=== PATIENT | male | born 1960 | race Caucasian/White ===

== ENCOUNTER 2016-08-29 07:58 | Emergency (ER) | payer MEDICAID ==
[~2016-08-29] VITALS: Ht 172.7 cm; Wt 82.0 kg
[~2016-08-29 07:58] MED LIST: BL ADULT ASA81 MG PO; CEPHALEXIN500 M1 PO; FENOFIBRATE145 MG PO; KEFLEX500 MG OR; LIPITOR80 M1 PO; LISINOPRIL/HYDR1 TA1 PO; LORTAB 5 OR; LORTAB 7.5 OR; NAPROSYN500 MG PO; NAPROXEN250 MG PO; NITROGLYCER0.4 MG PO; PRILOSEC40 MG PO; SERTRALINE50 MG PO
[2016-08-29] MEDS ORDERED: ADLT ASA LOW81 MG PO (08:17)
[2016-08-29] MEDS ORDERED: ISOSORB MONO30 MG PO (08:18)
[2016-08-29 08:44] LABS: HEMATOCRIT 40.5 % (39.0-50.0); HEMOGLOBIN 14.1 g/dl (14.0-18.0); IMMATURE GRANULOCYTES 0.5 % (0.0-1.0); MEAN CELL VOLUME 86.2 fL CALC (80.0-100.0); MEAN CORPUSCULAR HGB CONC 34.8 g/L CALC (32.0-36.0); NEUT# 7.48 thou/uL (1.82-7.42); RED BLOOD COUNT 4.7 mill/uL (4.70-6.10); RED CELL DISTRI WIDTH 12.4 % (11.5-15.5)
[2016-08-29 09:08] LABS: INFLUENZA A NONE DETECTED (NONE DETECT); INFLUENZA B NONE DETECTED (NONE DETECT)
[2016-08-29 09:18] LABS: ALBUMIN 4.8 g/dL (3.2-5.0); ALKALINE PHOSPHATASE 61 u/l (38-126); ANION GAP 19 (6-22 (CALC)); BILIRUBIN, TOTAL 0.5 mg/dL (0.0-1.4); BUN 13 mg/dL (9-20); BUN/CREATININE RATIO 12 (12-20 (CALC)); CALCIUM 10.2 mg/dL (8.4-10.2); CARBON DIOXIDE 21 mmol/l (22-30); CHLORIDE 102 mmol/l (95-108); CREATININE 1.1 mg/dL (0.7-1.3); GFR > 60 ML/MIN (>=60 (CALC)); GFR FOR AFR.AMER. > 60 ML/MIN (>=60 (CALC)); GLUCOSE 124 mg/dL (75-110); LIPASE 66 u/l (23-300); POTASSIUM 3.8 mmol/l (3.5-5.1); SGOT/AST 25 u/l (17-59); SGPT/ALT 45 u/l (21-72); SODIUM 137 mmol/l (137-146); TOTAL PROTEIN 8.1 g/dL (6.3-8.2)
[2016-08-29] MEDS ORDERED: METRONIDAZOL500 MG PO (09:19)
[2016-08-29 10:37] VITALS: BP 124/87
[2016-08-29 11:28] LABS: C. DIFFICILE TOXIN A&B NEGATIVE (NEGATIVE)
== END 2016-08-29 10:56 | disposition home or self-care (01) | DRG 392 ==
LOC: ED 07:58
PROVIDERS: Emergency Medicine
DX: R19.7 Diarrhea, unspecified (principal)

== ENCOUNTER 2017-08-05 16:51 | Emergency (ER) | payer OTHER ==
[~2017-08-05] VITALS: Ht 172.7 cm; Wt 90.0 kg
[~2017-08-05 16:51] MED LIST changes: +ADLT ASA LOW81 MG PO; +ISOSORB MONO30 MG PO; +METRONIDAZOL500 MG PO
[2017-08-05 18:42] VITALS: BP 128/73
== END 2017-08-05 18:42 | disposition home or self-care (01) | DRG 605 ==
LOC: ED 16:51
DX: S61.012A Laceration without foreign body of left thumb without damage to nail, initial encounter (principal); W26.0XXA Contact with knife, initial encounter; Y93.89 Activity, other specified; Y92.009 Unspecified place in unspecified non-institutional (private) residence as the place of occurrence of the external cause

== ENCOUNTER 2017-08-28 09:00 | Emergency (ER) | payer OTHER ==
[~2017-08-28] VITALS: Ht 172.7 cm; Wt 100.0 kg
[2017-08-28] MEDS ORDERED: GABAPENTIN300 M2 (09:45)
[2017-08-28 10:15] LABS: INFLUENZA A NONE DETECTED (NONE DETECT); INFLUENZA B NONE DETECTED (NONE DETECT)
[2017-08-28 10:56] LABS: IMMATURE GRANULOCYTES 0.3 % (0.0-1.0); MEAN CORPUSCULAR HGB 30.3 pG CALC (26.0-32.0); MEAN CORPUSCULAR HGB CONC 34.8 g/L CALC (32.0-36.0); NEUT# 4.27 thou/uL (1.82-7.42); RED BLOOD COUNT 3.86 mill/uL (4.70-6.10); RED CELL DISTRI WIDTH 12.4 % (11.5-15.5)
[2017-08-28 10:57] LABS: HEMATOCRIT 33.6 % (39.0-50.0); HEMOGLOBIN 11.7 g/dl (14.0-18.0)
[2017-08-28] MEDS ORDERED: ROBITUSSIN AC10 ML PO (11:51)
[2017-08-28 12:02] VITALS: BP 122/64
== END 2017-08-28 12:08 | disposition home or self-care (01) | DRG 866 ==
LOC: ED 09:00
PROVIDERS: Family Medicine
DX: B34.9 Viral infection, unspecified (principal); E78.00 Pure hypercholesterolemia, unspecified; I10 Essential (primary) hypertension; I25.2 Old myocardial infarction

== ENCOUNTER 2021-08-16 08:58 | Day surgery (SDC) | payer OTHER ==
[~2021-08-16] VITALS: Ht 172.7 cm; Wt 104.3 kg
[~2021-08-16 08:58] MED LIST changes: +ASPIRIN81 MG PO; +CLOPIDOGREL75 MG PO; +CRESTOR40 MG PO; +EZETIMIBE10 MG PO; +FENOFIBRATE40 MG PO; +GABAPENTIN100 MG PO; +GABAPENTIN300 M2; +ISOSORB DIN30 MG PO; +LISINOP/HCTZ1 TAB PO; +LISINOPRIL30 MG PO; +METFORMIN500 M2 PO; +METOPROL TAR25 M1 PO; +NITROGLYCER0.2 MG/H1 SL; +OMEPRAZOLE DR40 MG; +RANOLAZINE ER500 MG; +ROBITUSSIN AC10 ML PO; +SERTRALINE HCL50 MG PO; +[UNRECOGNIZED DRUG - OTHER] PO
[2021-08-16 11:18] VITALS: BP 110/68
== END 2021-08-16 11:45 | disposition home or self-care (01) ==
LOC: ENDO 08:58 → ORM 10:15 → ENDO 10:15
PROVIDERS: ATTEND Surgery
DX: R19.5 Other fecal abnormalities (principal); K29.70 Gastritis, unspecified, without bleeding; K44.9 Diaphragmatic hernia without obstruction or gangrene; I10 Essential (primary) hypertension; E78.00 Pure hypercholesterolemia, unspecified; Z79.899 Other long term (current) drug therapy

== ENCOUNTER 2021-12-18 12:34 | Emergency (ER) | payer OTHER ==
[~2021-12-18] VITALS: Ht 170.2 cm; Wt 104.3 kg
[2021-12-18 14:03] VITALS: BP 116/78
[2021-12-18 14:31] VITALS: BP 112/72
[2021-12-18 14:42] LABS: URINE BILIRUBIN - DIPSTICK NEGATIVE (NEGATIVE); URINE BLOOD DIPSTICK NEGATIVE (NEGATIVE); URINE GLUCOSE - DIPSTICK NEGATIVE (NEGATIVE); URINE KETONE TRACE mg/dL (NEGATIVE); URINE LEUK ESTERASE NEGATIVE (NEGATIVE); URINE PH 5.5 (4.5-8.0); URINE PROTEIN - DIPSTICK NEGATIVE (NEG-TRACE); URINE SPECIFIC GRAVITY >=1.030
[2021-12-18 14:43] LABS: URINE COLOR DK. YELLOW; URINE NITRITE - DIPSTICK NEGATIVE (Negative)
[2021-12-18 15:00] VITALS: BP 119/67
[2021-12-18] MEDS ORDERED: CYCLOBENZAPRINE10 MG PO (16:10)
[2021-12-18] MEDS ORDERED: NAPROXEN500 MG PO (16:10)
[2021-12-18] MEDS ORDERED: LORTAB5 PO (16:10)
[2021-12-18 16:30] VITALS: BP 119/67
== END 2021-12-18 16:36 | disposition home or self-care (01) ==
LOC: ED 12:34
PROVIDERS: Nurse Practitioner
DX: S39.012A Strain of muscle, fascia and tendon of lower back, initial encounter (principal); I10 Essential (primary) hypertension; X58.XXXA Exposure to other specified factors, initial encounter

== ENCOUNTER 2022-01-28 10:04 | Emergency (ER) | payer OTHER ==
[2022-01-28] VITALS (17 sets, daily range): BP systolic 98–129; BP diastolic 48–75
[~2022-01-28] VITALS: Ht 170.2 cm; Wt 110.0 kg
[~2022-01-28 10:04] MED LIST changes: +CYCLOBENZAPRINE10 MG PO; +LORTAB5 PO; +NAPROXEN500 MG PO
[2022-01-28 11:10] LABS: HEMATOCRIT 32.4 % (39.0-50.0); HEMOGLOBIN 11.2 g/dl (14.0-18.0); IMMATURE GRANULOCYTES 0.2 % (0.0-5.0); MEAN CELL VOLUME 87.8 fL CALC (80.0-100.0); MEAN CORPUSCULAR HGB 30.4 pG CALC (26.0-32.0); MEAN CORPUSCULAR HGB CONC 34.6 g/dL CAL (32.0-36.0); NEUT# 3.55 thou/uL (1.82-7.42); RED BLOOD COUNT 3.69 mill/uL (4.70-6.10); RED CELL DISTRI WIDTH 12.5 % (11.5-15.5)
[2022-01-28 11:17] LABS: ALBUMIN 4.4 g/dL (3.2-5.0); ALKALINE PHOSPHATASE 80 u/l (38-126); BILIRUBIN, TOTAL 0.4 mg/dL (0.0-1.4); BUN 16 mg/dL (9-20); BUN/CREATININE RATIO 16 (12-20 (CALC)); CHLORIDE 98 mmol/l (95-108); GFR FOR AFR.AMER. > 60 ML/MIN (>=60 (CALC)); GFR OTHER RACES > 60 ML/MIN (>=60 (CALC)); POTASSIUM 4.2 mmol/l (3.5-5.1); SODIUM 134 mmol/l (137-146); TOTAL PROTEIN 7.5 g/dL (6.3-8.2)
[2022-01-28 11:26] LABS: ANION GAP 13 (6-22 (CALC)); CARBON DIOXIDE 27 mmol/l (22-30); SGOT/AST 52 u/l (17-59)
[2022-01-28] MEDS ORDERED: TYLENOL # 31 TA1 PO (17:21)
[2022-01-28] MEDS ORDERED: STERAPRED DS10 MG PO (17:21)
[2022-01-28] MEDS ORDERED: ORPHENADRINE100 MG PO (17:21)
== END 2022-01-28 18:08 | disposition home or self-care (01) ==
LOC: ED 10:04
PROVIDERS: Family Medicine
DX: S39.012A Strain of muscle, fascia and tendon of lower back, initial encounter (principal); M51.17 Intervertebral disc disorders with radiculopathy, lumbosacral region; I10 Essential (primary) hypertension; I25.2 Old myocardial infarction; X58.XXXA Exposure to other specified factors, initial encounter

== ENCOUNTER 2022-02-19 07:58 | Day surgery (SDC) | payer OTHER ==
[~2022-02-19] VITALS: Ht 170.2 cm; Wt 108.0 kg
[~2022-02-19 07:58] MED LIST changes: +DICLOFENAC SODIUM1 % TOP; +ORPHENADRINE100 MG PO; +STERAPRED DS10 MG PO; +TYLENOL # 31 TA1 PO
[2022-02-19] MEDS ORDERED: PERCOCET 5/325M1 TAB PO (11:08)
[2022-02-19 12:17] VITALS: BP 116/64
== END 2022-02-19 12:39 | disposition home or self-care (01) ==
LOC: ORM 07:58
PROVIDERS: ATTEND Surgery
DX: N62 Hypertrophy of breast (principal); K42.9 Umbilical hernia without obstruction or gangrene; E11.9 Type 2 diabetes mellitus without complications; Z79.84 Long term (current) use of oral hypoglycemic drugs
CPT/HCPCS: J0131

== ENCOUNTER 2024-04-05 13:41 | Emergency (ER) | payer OTHER ==
[~2024-04-05] VITALS: Ht 170.2 cm; Wt 106.1 kg
[2024-04-05] VITALS (11 sets, daily range): BP systolic 120–140; BP diastolic 75–97
[~2024-04-05 13:41] MED LIST changes: +AMLODIPINE BESYL5 MG PO; +CIPROFLOXACN500 MG PO; +CRESTOR20 MG PO; +FENOFIBRATE200 MG PO; +FLEXERIL5 M1 PO; +GLUCOSAMIN PO; +METFORMIN HCL1000 MG PO; +OMNICEF300 M1 PO; +PERCOCET 5/325M1 TAB PO; +TOPIRAMATE25 MG PO; +TRAMADOL HYDROC50 M1 PO; +UBRELVY50 MG PO; +ZITHROMAX Z-PA250 MG PO
[2024-04-05] MEDS ORDERED: ISOVUE-300 (Iopamidol) 100 ML SDV IV ONE (13:50)
[2024-04-05] MEDS ORDERED: SODIUM CHLORIDE 0.9% 1,000 ML IV ONE (13:55)
[2024-04-05] MEDS ORDERED: ONDANSETRON HCl 4 MG/2 ML SDV IV ONE (13:55)
[2024-04-05] MEDS ORDERED: MORPHINE SULFATE 4 MG/ML VIAL IV ONE (14:00)
[2024-04-05 14:13] LABS: BASO% 0.3 % (0-3); EOS% 2.7 % (0-8); HEMATOCRIT 39.8 % (39.0-50.0); HEMOGLOBIN 13.5 g/dl (14.0-18.0); IMMATURE GRANULOCYTES 0.1 % (0.0-5.0); LYMPH% 16.9 % (15-41); MEAN CELL VOLUME 88.1 fL CALC (80.0-100.0); MEAN CORPUSCULAR HGB 29.9 pG CALC (26.0-32.0); MEAN CORPUSCULAR HGB CONC 33.9 g/dL CAL (32.0-36.0); MONO% 7.4 % (2-13); NEUT# 6.34 thou/uL (1.82-7.42); NEUT% 72.6 % (42-76); RED BLOOD COUNT 4.52 mill/uL (4.70-6.10); RED CELL DISTRI WIDTH 12.5 % (11.5-15.5)
[2024-04-05 14:30] LABS: CREATININE 0.9 mg/dL (0.7-1.3); POTASSIUM 4.6 mmol/l (3.5-5.1); TOTAL PROTEIN 7.4 g/dL (6.3-8.2)
[2024-04-05 14:31] LABS: ALBUMIN 4.6 g/dL (3.2-5.0); BILIRUBIN, TOTAL 0.8 mg/dL (0.2-1.3)
[2024-04-05] MEDS ORDERED: KETOROLAC TROMETHAMINE 30 MG/ML SDV IV ONE (15:00)
[2024-04-05] MEDS ORDERED: FAMOTIDINE 10MG/ML 2ML SDV IV ONE (15:00)
[2024-04-05] MEDS ORDERED: Pantoprazole Sodium 40 MG VIAL (Protonix) IV ONE (15:00)
[2024-04-05 15:24] LABS: URINE BILIRUBIN - DIPSTICK Negative (NEGATIVE); URINE BLOOD DIPSTICK Negative (NEGATIVE); URINE COLOR Yellow; URINE GLUCOSE - DIPSTICK Negative (NEGATIVE); URINE KETONE Negative (NEGATIVE); URINE LEUK ESTERASE Negative (NEGATIVE); URINE NITRITE - DIPSTICK Negative (Negative); URINE PH 5.5 (4.5-8.0); URINE PROTEIN - DIPSTICK Negative (NEG-TRACE)
[2024-04-05] MEDS ORDERED: DICYCLOMINE HYD10 MG PO (16:18)
[2024-04-05] MEDS ORDERED: PROTONIX40 M2 PO (16:18)
== END 2024-04-05 16:30 | disposition home or self-care (01) ==
LOC: ED 13:41
PROVIDERS: Nurse Practitioner
DX: K29.70 Gastritis, unspecified, without bleeding (principal); I10 Essential (primary) hypertension; E11.9 Type 2 diabetes mellitus without complications; I25.10 Atherosclerotic heart disease of native coronary artery without angina pectoris; I25.2 Old myocardial infarction; Z95.1 Presence of aortocoronary bypass graft; Z95.5 Presence of coronary angioplasty implant and graft; Z79.84 Long term (current) use of oral hypoglycemic drugs
CPT/HCPCS: J2470; Q9967

== ENCOUNTER 2024-05-18 10:01 | Emergency (ER) | payer SELFPAY ==
[~2024-05-18] VITALS: Ht 170.2 cm; Wt 104.0 kg
[~2024-05-18 10:01] MED LIST changes: +DICYCLOMINE HYD10 MG PO; +PROTONIX40 M2 PO
[2024-05-18] MEDS ORDERED: MUPIROCIN2 % EX (12:26)
[2024-05-18 12:45] VITALS: BP 156/85
== END 2024-05-18 12:45 | disposition home or self-care (01) | DRG 603 ==
LOC: ED 10:01
DX: L01.00 Impetigo, unspecified (principal); I10 Essential (primary) hypertension; E11.9 Type 2 diabetes mellitus without complications; I25.10 Atherosclerotic heart disease of native coronary artery without angina pectoris; I25.2 Old myocardial infarction; Z95.5 Presence of coronary angioplasty implant and graft; Z79.84 Long term (current) use of oral hypoglycemic drugs

== ENCOUNTER 2024-05-25 08:59 | Emergency (ER) | payer SELFPAY ==
[~2024-05-25] VITALS: Ht 170.2 cm; Wt 90.7 kg
[~2024-05-25 08:59] MED LIST changes: +MUPIROCIN2 % EX
[2024-05-25 09:29] VITALS: BP 142/75
[2024-05-25 09:30] VITALS: BP 148/81
[2024-05-25] MEDS ORDERED: KETOROLAC TROMETHAMINE 30 MG/ML SDV IM ONE (09:35)
[2024-05-25] MEDS ORDERED: METHOCARBAMOL 500 MG/TAB PO ONE (09:35)
[2024-05-25] MEDS ORDERED: HYDROCO/APAP1 TA9 PO (09:38)
[2024-05-25 09:45] VITALS: BP 134/73
[2024-05-25 10:00] VITALS: BP 144/77
== END 2024-05-25 10:03 | disposition home or self-care (01) | DRG 552 ==
LOC: ED 08:59
DX: M54.9 Dorsalgia, unspecified (principal); E11.9 Type 2 diabetes mellitus without complications; I10 Essential (primary) hypertension; I25.10 Atherosclerotic heart disease of native coronary artery without angina pectoris; I25.2 Old myocardial infarction; Z79.84 Long term (current) use of oral hypoglycemic drugs; Z91.81 History of falling